=== PATIENT | female | born 1960 | race African-American/Black ===

== ENCOUNTER 2016-11-11 04:26 | Emergency (ER) | payer MEDICAID, OTHER ==
[~2016-11-11] VITALS: Ht 167.6 cm; Wt 70.0 kg
[2016-11-11] MEDS ORDERED: ACETAMINOPHEN 325MG TABLET PO STA (06:27)
[2016-11-11] MEDS ORDERED: SODIUM CHLORIDE 0.9% 1,000 ML IV ONE (06:27)
[2016-11-11] MEDS ORDERED: KETOROLAC 30MG/ML VIAL IV STA (06:27)
[2016-11-11] MEDS ORDERED: ONDANSETRON HCL 4MG/2ML VIAL IV STA (06:27)
[2016-11-11] MEDS ORDERED: ACETAMINOPHEN 500MG TABLET PO ONE (06:31)
[2016-11-11 08:00] VITALS: BP 102/69
== END 2016-11-11 09:22 | disposition home or self-care (01) ==
LOC: ER 07:35
DX: B34.9 Viral infection, unspecified (principal); F17.210 Nicotine dependence, cigarettes, uncomplicated; G10 Huntington's disease; Z88.6 Allergy status to analgesic agent; Z90.49 Acquired absence of other specified parts of digestive tract
CPT/HCPCS: 71010; 93005; 96361; 96374; 96375; 99285; J1885; J2405; J7030; Z7610

== ENCOUNTER 2016-12-31 20:09 | Emergency (ER) | payer MEDICAID ==
[~2016-12-31] VITALS: Ht 167.6 cm; Wt 82.0 kg
[2016-12-31 21:23] LABS: CLARITY URINE CLEAR (CLEAR); COLOR URINE YELLOW (YELLOW); GLUCOSE URINE NEGATIVE (NEGATIVE); KETONES URINE NEGATIVE (NEGATIVE); LEUKOCYTE ESTERASE URINE TRACE (NEGATIVE); NITRITE URINE NEGATIVE (NEGATIVE); OCCULT BLOOD URINE NEGATIVE (NEGATIVE); PROTEIN URINE NEGATIVE (NEGATIVE); SPECIFIC GRAVITY URINE 1.007 (1.005-1.030); UROBILINOGEN URINE 0.2 E.U./dL (0.2-1.0)
[2017-01-01 00:37] LABS: BASOPHILS % 0.7 % (0.0-2.0); EOSINOPHILS % 1.6 % (0.0-5.0); HEMATOCRIT. 31.9 % (36.0-48.0); HEMOGLOBIN. 9.9 g/dL (12.0-16.0); LYMPHOCYTES % 47.8 % (20.0-50.0); MEAN CORPUSCULAR HEMOGLOBIN 22.3 pg (28.0-32.0); MEAN CORPUSCULAR VOLUME 71.8 fL (81.0-99.0); MEAN PLATELET VOLUME 7.5 fl (7.4-10.4); MONOCYTES % 14.2 % (2.0-8.0); NEUTROPHILS % 35.7 % (40.0-76.0); PLATELET 170 x1000/uL (130-400); RED BLOOD CELL COUNT 4.44 mill/uL (4.2-5.4); RED CELL DISTRIBUTION WIDTH 14.7 % (11.6-14.6)
[2017-01-01] MEDS: KETOROLAC 30MG/ML VIAL IV STA (00:40)
[2017-01-01] MEDS: SODIUM CHLORIDE 0.9% 1,000 ML IV ONE (00:40)
[2017-01-01 00:45] LABS: CHLORIDE 106 mEq/L (98-107)
[2017-01-01 00:46] LABS: INR 1.1; PROTHROMBIN TIME 11.4 sec (9.4-11.6)
[2017-01-01 00:48] LABS: HCG SCREEN NEGATIVE
[2017-01-01 00:54] LABS: CARBON DIOXIDE 32 mEq/L (21-32)
[2017-01-01] MEDS: KETOROLAC 30MG/ML VIAL IV ONE (02:35)
[2017-01-01] MEDS: ACETAMINOPHEN 325MG TABLET PO ONE (07:04)
[2017-01-01 11:55] VITALS: BP 112/60
== END 2017-01-01 12:00 | disposition home or self-care (01) ==
LOC: ER 20:09
DX: N20.0 Calculus of kidney (principal)
CPT/HCPCS: 36415; 74176; 80053; 81001; 83605; 83690; 84703; 85025; 85610; 96361; 96374; 96376; 99285; J1885; J7030; Z7610

== ENCOUNTER 2018-01-05 04:12 | Inpatient (IN) | payer MEDICAID ==
[~2018-01-05] VITALS: Ht 167.6 cm; Wt 69.4 kg
[2018-01-05] MEDS ORDERED: ASPIRIN 81MG TABLET PO ONE (08:30)
[2018-01-05 09:10] LABS: CHLORIDE 107 mEq/L (98-107)
[2018-01-05 09:12] LABS: BASOPHILS % 0.6 % (0.0-2.0); EOSINOPHILS % 1.3 % (0.0-5.0); HEMATOCRIT. 36.4 % (36.0-48.0); HEMOGLOBIN. 11.7 g/dL (12.0-16.0); INR 1.1; LYMPHOCYTES % 44.2 % (20.0-50.0); MEAN CORPUSCULAR VOLUME 71.7 fL (81.0-99.0); MEAN PLATELET VOLUME 8.2 fl (7.4-10.4); MONOCYTES % 12.2 % (2.0-8.0); NEUTROPHILS % 41.7 % (40.0-76.0); PLATELET 212 x1000/uL (130-400); PROTHROMBIN TIME 10.7 sec (9.1-11.1); RED BLOOD CELL COUNT 5.08 mill/uL (4.2-5.4); RED CELL DISTRIBUTION WIDTH 15.1 % (11.6-14.6)
[2018-01-05 09:14] LABS: CLARITY URINE CLEAR (CLEAR); COLOR URINE YELLOW (YELLOW); KETONES URINE NEGATIVE (NEGATIVE); LEUKOCYTE ESTERASE URINE 1+ (NEGATIVE); NITRITE URINE NEGATIVE (NEGATIVE); OCCULT BLOOD URINE NEGATIVE (NEGATIVE); PH URINE 8.5 (4.5-8.0); PROTEIN URINE NEGATIVE (NEGATIVE); SPECIFIC GRAVITY URINE 1.008 (1.005-1.030); UROBILINOGEN URINE 0.2 E.U./dL (0.2-1.0)
[2018-01-05 09:41] LABS: *AMPHETAMINES SCREEN URINE NEGATIVE (NEGATIVE); *BARBITURATES SCREEN URINE NEGATIVE (NEGATIVE); *BENZODIAZEPINES SCREEN URINE NEGATIVE (NEGATIVE); *COCAINE SCREEN URINE NEGATIVE (NEGATIVE); CANNABINOID URINE SCREEN PRESUMTIVE POSITIVE (NEGATIVE); METHADONE URINE SCREEN NEGATIVE (NEGATIVE)
[2018-01-05 09:42] LABS: OPIATES URINE SCREEN NEGATIVE (NEGATIVE); PHENCYCLIDINE URINE SCREEN NEGATIVE (NEGATIVE)
[2018-01-05] MEDS ORDERED: MORPHINE SULFATE 4 MG/ML CPJ (NOT FOR IM USE) IV ONE (10:45)
[2018-01-05] MEDS ORDERED: ONDANSETRON 4MG ODT PO ONE (10:45)
[2018-01-05] MEDS ORDERED: CEFTRIAXONE 1 G PREMIX 50 ML IV ONE (12:30)
[2018-01-05 15:48] VITALS: BP 107/65
[2018-01-05] MEDS ORDERED: CEFTRIAXONE 1,000 MG in DEXTROSE 5% WATER 50 ML IV SCH (18:15)
[2018-01-05] MEDS ORDERED: CLONIDINE 0.1MG TABLET PO PRN (18:15)
[2018-01-05] MEDS ORDERED: ACETAMINOPHEN 325MG TABLET PO PRN (18:15)
[2018-01-05] MEDS: KETOROLAC 30MG/ML VIAL IV SCH (19:15)
[2018-01-05] MEDS: DEXT 5%/0.45% NACL 1000ML 1,000 ML IV SCH (19:17)
[2018-01-05 20:00] VITALS: BP 93/55
[2018-01-05] MEDS: ONDANSETRON HCL 4MG/2ML INJ IV PRN (21:38)
[2018-01-05] MEDS: CEFTRIAXONE 1 G PREMIX 50 ML IV SCH (21:38)
[2018-01-06] VITALS: BP 96/54
[2018-01-06] MEDS: KETOROLAC 30MG/ML VIAL IV SCH ×5 (00:45→23:43)
[2018-01-06 01:03] LABS: CREATINE KINASE 94 IU/L (26-192); CREATINE KINASE MB FRACTION < 1.0 ng/mL (0.5-3.6)
[2018-01-06] MEDS: ONDANSETRON HCL 4MG/2ML INJ IV PRN ×4 (02:57→23:42)
[2018-01-06 04:00] VITALS: BP 99/64
[2018-01-06] MEDS: DEXT 5%/0.45% NACL 1000ML 1,000 ML IV SCH ×3 (05:30→18:17)
[2018-01-06 07:11] LABS: BASOPHILS % 0.6 % (0.0-2.0); EOSINOPHILS % 1.8 % (0.0-5.0); HEMATOCRIT. 33.6 % (36.0-48.0); HEMOGLOBIN. 10.6 g/dL (12.0-16.0); LYMPHOCYTES % 35.5 % (20.0-50.0); MEAN CORPUSCULAR HEMOGLOBIN 22.8 pg (28.0-32.0); MEAN PLATELET VOLUME 8.5 fl (7.4-10.4); MONOCYTES % 12.3 % (2.0-8.0); NEUTROPHILS % 49.8 % (40.0-76.0); PLATELET 191 x1000/uL (130-400); RED BLOOD CELL COUNT 4.67 mill/uL (4.2-5.4); RED CELL DISTRIBUTION WIDTH 15.2 % (11.6-14.6)
[2018-01-06 07:14] LABS: CHLORIDE 107 mEq/L (98-107)
[2018-01-06 07:24] LABS: LDL CHOLESTEROL 139 mg/dL (5-100)
[2018-01-06 07:25] LABS: CREATINE KINASE 97 IU/L (26-192); HDL CHOLESTEROL 59 mg/dL (40-59)
[2018-01-06 07:29] LABS: CREATINE KINASE MB FRACTION < 1.0 ng/mL (0.5-3.6)
[2018-01-06] MEDS ORDERED: CLONAZEPAM 1MG TABLET PO SCH (15:30)
[2018-01-06] MEDS ORDERED: ATORVASTATIN CALCIUM 20MG TABLET PO SCH (21:00)
[2018-01-06] MEDS: CEFTRIAXONE 1 G PREMIX 50 ML IV SCH (21:49)
[2018-01-07] VITALS: BP 110/70
[2018-01-07 04:00] VITALS: BP 98/60
[2018-01-07] MEDS: KETOROLAC 30MG/ML VIAL IV SCH ×2 (05:35→13:40)
[2018-01-07] MEDS: ONDANSETRON HCL 4MG/2ML INJ IV PRN (05:35)
[2018-01-07 06:41] VITALS: BP 100/60
[2018-01-07 08:00] VITALS: BP 88/53
[2018-01-07] MEDS ORDERED: CLONAZEPAM 1MG TABLET PO SCH (09:00)
[2018-01-07 12:00] VITALS: BP 100/54
[2018-01-07 16:55] VITALS: BP 100/54
== END 2018-01-07 18:00 | disposition home or self-care (01) | DRG 463 ==
LOC: ER 08:56 → 5WST 12:48 → ENRESERV 13:32
PROVIDERS: ADMIT Internal Medicine; ATTEND Internal Medicine
DX: N39.0 Urinary tract infection, site not specified (principal); G10 Huntington's disease; M94.0 Chondrocostal junction syndrome [Tietze]; D64.9 Anemia, unspecified; E78.00 Pure hypercholesterolemia, unspecified; F12.90 Cannabis use, unspecified, uncomplicated; M51.86 Other intervertebral disc disorders, lumbar region; N20.0 Calculus of kidney; Z85.42 Personal history of malignant neoplasm of other parts of uterus; Z90.49 Acquired absence of other specified parts of digestive tract; Z88.5 Allergy status to narcotic agent
CPT/HCPCS: 36415; 71045; 72110; 74176; 80048; 80061; 80305; 82550; 82553; 83036; 83880; 84443; 84484; 93005; 93306; 96374; 97116; 97162; 97530; 99285; J0696; J1885; J2270; J2405; J3490; Q0162

== ENCOUNTER 2018-09-02 05:32 | Emergency (ER) | payer MEDICAID ==
[~2018-09-02] VITALS: Ht 167.6 cm; Wt 73.0 kg
[2018-09-02] MEDS ORDERED: KETOROLAC 30MG/ML VIAL IV STA (06:43)
[2018-09-02] MEDS ORDERED: ONDANSETRON HCL 4MG/2ML INJ IV ONE (07:15)
[2018-09-02 08:44] VITALS: BP 106/65
== END 2018-09-02 11:00 | disposition home or self-care (01) ==
LOC: ER 05:32
DX: B34.9 Viral infection, unspecified (principal); R03.0 Elevated blood-pressure reading, without diagnosis of hypertension; Z72.0 Tobacco use
CPT/HCPCS: 71045; 87070; 87430; 93005; 96374; 96375; 99284; J1885; J2405

== ENCOUNTER 2025-03-03 16:12 | Emergency (ER) | payer MEDICAID ==
[~2025-03-03] VITALS: Ht 170.2 cm; Wt 77.0 kg
[~2025-03-03 16:12] MED LIST: ASPI-1497 PO; CLON-866 PO; FLUD0.1T2 PO; MIDO5TAB4 PO
[2025-03-03 16:26] VITALS: BP 133/84; TEMP 37.2; O2SAT 99
[2025-03-03 16:33] VITALS: PULSE 88; RESP 18; O2SAT 100
[2025-03-03 18:05] LABS: BASOPHILS % 0.8 % (0.0-2.0); EOSINOPHILS % 2.4 % (0.0-5.0); HEMATOCRIT. 34.8 % (36.0-48.0); HEMOGLOBIN. 10.8 g/dL (12.0-16.0); LYMPHOCYTES % 52.7 % (20.0-50.0); MEAN PLATELET VOLUME 8.4 fl (7.4-10.4); MONOCYTES % 6.8 % (2.0-8.0); NEUTROPHILS % 37.3 % (40.0-76.0); PLATELET 205 x1000/uL (130-400); RED BLOOD CELL COUNT 4.83 mill/uL (4.2-5.4); RED CELL DISTRIBUTION WIDTH 15.1 % (11.6-14.6)
[2025-03-03 18:20] LABS: CREATININE 1.0 mg/dL (0.6-1.0); UREA NITROGEN BLOOD < 5 mg/dL (9-23)
[2025-03-03 19:47] LABS: INFLUENZA TYPE A Presumptive Negative (Pres. Neg.)
[2025-03-03 19:48] LABS: INFLUENZA TYPE B Presumptive Negative (Pres. Neg.)
== END 2025-03-03 19:04 | disposition home or self-care (01) ==
LOC: ER 16:12
DX: B34.9 Viral infection, unspecified (principal); Z90.49 Acquired absence of other specified parts of digestive tract; Z88.5 Allergy status to narcotic agent; Z20.822 Contact with and (suspected) exposure to COVID-19; Z79.899 Other long term (current) drug therapy
CPT/HCPCS: 36415; 71045; 80048; 85025; 87426; 87804; 93005; 99285